=== PATIENT | male | born 1980 | race Caucasian/White ===

== ENCOUNTER 2025-03-15 12:53 | Emergency (ER) | payer SELFPAY ==
[2025-03-15 12:57] VITALS: BP 223/145
[2025-03-15] MEDS: DILAUDID 1 MG IV (13:10)
--- NOTE | 2025-03-15 13:24 | ED.GENMED ---
History of Present Illness
<River Garcia MD - Last Filed: 03/15/25 13:31>
General
Chief Complaint: Skin Surface Trauma
Time Seen by Provider: 03/15/25 13:08
<Brendon Weaver PA-C - Last Filed: 03/15/25 14:22>
General
Source: patient
Exam Limitations: none
History of Present Illness
History of Present Illness:
44-year-old [id number] male presents complaining of laceration/amputation of the right index finger. He was removing a pin for a back kit and the bucket fell pinching his finger. He noticed that his tip of his finger was cut off. He
presents finger in a bag.
Phy Exam
<Brendon Weaver PA-C - Last Filed: 03/15/25 14:22>
Physical Exam
Physical Exam:
General: Well-appearing male no acute respiratory distress
HEENT: Normal cephalic atraumatic
Musculoskeletal exam: There is a full amputation of the right index finger at the level of the DIP joint radially and the laceration extends obliquely to the ulnar direction. He has ability to flex slightly at the DIP joint.
Neurologic exam: Good sensation to the tip of the finger
Vascular: Right index finger with brisk Apley refill
Course
<River Garcia MD - Last Filed: 03/15/25 13:31>
Orders/Labs/Results
Orders:
Orders
03/15/25 13:09
HYDROmorphone [Dilaudid] 1 mg .ROUTE .STK-MED ONE
03/15/25 13:10
HYDROmorphone [Dilaudid] 1 mg IV NOW STA
03/15/25 13:21
CR Finger(s)/thumb Min 2 Vw Rt Urgent
Comment:
Reason For Exam: amputation
03/15/25 13:24
CeFAZolin 1 GRAM [Ancef] 1 gram in 5 ml IV NOW
Tetanus/Diphth/Acelpertussis [Adacel] 0.5 ml IM .ONCE ONE
Vital Signs
Initial and Last Documented VS:
Initial Vital Signs
Temp Pulse Resp BP Pulse Ox
98.3 F 100 20 223/145 100
03/15/25 12:57 03/15/25 12:57 03/15/25 12:57 03/15/25 12:57 03/15/25 12:57
Last Documented Vital Signs
Temp Pulse Resp BP Pulse Ox
98.3 F 100 20 223/145 100
03/15/25 12:57 03/15/25 12:57 03/15/25 12:57 03/15/25 12:57 03/15/25 13:25
<Brendon Weaver PA-C - Last Filed: 03/15/25 14:22>
Orders/Labs/Results
Orders:
Orders
03/15/25 13:09
HYDROmorphone [Dilaudid] 1 mg .ROUTE .STK-MED ONE
03/15/25 13:10
HYDROmorphone [Dilaudid] 1 mg IV NOW STA
03/15/25 13:21
CR Finger(s)/thumb Min 2 Vw Rt Urgent
Comment:
Reason For Exam: amputation
03/15/25 13:24
CeFAZolin 1 GRAM [Ancef] 1 gram in 5 ml IV NOW
Tetanus/Diphth/Acelpertussis [Adacel] 0.5 ml IM .ONCE ONE
Vital Signs
Initial and Last Documented VS:
Initial Vital Signs
Temp Pulse Resp BP Pulse Ox
98.3 F 100 20 223/145 100
03/15/25 12:57 03/15/25 12:57 03/15/25 12:57 03/15/25 12:57 03/15/25 12:57
Last Documented Vital Signs
Temp Pulse Resp BP Pulse Ox
98.3 F 100 20 223/145 100
03/15/25 12:57 03/15/25 12:57 03/15/25 12:57 03/15/25 12:57 03/15/25 13:25
<Brendon Weaver PA-C - Last Filed: 03/15/25 14:22>
MDM/Problems Addressed
Differential Diagnosis Includes:
Complete amputation tip of right index finger. Digital block was provided for pain relief lidocaine and Marcaine. X-rays pending. I sent a picture of the patient's finger to the hand specialist for their evaluation and explained that he has the
tip of his finger with them. They advised bandages and follow-up in the office. They feel he will do better with a revision amputation as an outpatient. Tetanus vaccine updated. Ancef ordered
<River Garcia MD - Last Filed: 03/15/25 13:31>
*Pulse Oximetry
SaO2: 100
Oxygen Mode of Delivery: Room air
<Brendon Weaver PA-C - Last Filed: 03/15/25 14:22>
*Pulse Oximetry
Patient hypoxic: no
*Critical Care Note
Total Time (30-74mins, 75-104mins- exclusive of procedures): Not Applicable
<Brendon Weaver PA-C - Last Filed: 03/15/25 14:22>
Update Note
Update Note:
Discussed findings with the hand specialist and they recommended dressing the finger as it is. They want to see him in their office today upon discharge to discuss revision amputation. X-rays reviewed and demonstrate a full amputation at the level
of the distal phalanx just distal to the DIP joint.
ED Attending Note
<River Garcia MD - Last Filed: 03/15/25 13:31>
ED Attending Note
Patient seen and examined by attending physician: Yes
I performed the substantive portion of visit, reviewed & personally made and approve the management plan that is documented in note by myself or KATLYN.: Yes
ED Attending Note:
I have seen and evaluated the patient with a [id number] encounter. I have spoken to the [KATLYN] and involved in the medical history, the physical exam, medical decision making.
Evaluation and management service: agree unless noted differently below.
Results interpretation: agree unless noted differently below.
44-year-old man presenting to the emergency department with a partial fingertip amputation. Patient states that his right index finger was crushed by a backhoe bucket. Patient has significant pain. Denies any trauma elsewhere. He is not on a
blood thinner. On my evaluation patient is resting comfortably. His right index finger does has a diagonal partial amputation. No obvious bony exposure. He is able to flex at the distal IP joint. Will complete digital block obtain x-rays and
will discuss with hand surgery. Amputated finger is wrapped in moist gauze on ice.
-
Portions of this chart may have been created with voice recognition software.� Occasional wrong word or��sound alike� substitutions may have occurred due to the inherent limitations of voice recognition software.
Discharge Plan
Departure
Patient Disposition: Home (Routine Discharge)
Date of Disposition: 03/15/25
Time of Disposition: 14:21
Patient with high blood pressure during this ER visit?: No
Discharge Problem:
Amputation finger
Instructions: Wound Care (DC)
Referrals:
Hadley Xiao MD [Active, Orthopedics]
Activity Restrictions/Additional Instructions:
Please go directly to the hand specialist office and see Dr. Xiao to discuss further and definitive treatment for your finger
Interventions
Interventions:
*Risk Screen - Suicide Last Done: 03/15/25 12:57
*General Assessment Last Done: 03/15/25 13:33
*Neglect/Abuse Screening Last Done: 03/15/25 13:33
*ED COVID-19 Vaccine History Last Done: 03/15/25 12:57
*ED Influenza Vaccine History Last Done: 03/15/25 12:57
ED-Skin Assessment Last Done: 03/15/25 13:56
Discharge Date and Time
Print Language: GHANAIAN
[2025-03-15 13:32] VITALS: BMI 21.5
[2025-03-15] MEDS: DILAUDID 0.5 MG IV (15:06)
[2025-03-15] MEDS: ANCEF 5 IV (15:08)
[2025-03-15 15:10] VITALS: BP 220/95
--- NOTE | 2025-03-15 15:55 | EDRN ---
Hypertension: Patient's BP 220/95, HR 95 before discharge. Patient reports he is prescribed lisinopril but does not take it. Patient reports his SBP is typically over 200 mmHg and has been for over the past 20 years. Patient reports he does not any
medications for his BP. RN educated the patient of the importance and risk like stroke and heart attack. Patient verbalizes his understanding and continues to refuse medications.
== END 2025-03-15 15:40 | disposition home or self-care (01) ==
LOC: EMR 12:53
PROVIDERS: EMERGENCY PHYSICIAN Student in an Organized Health Care Education/Training Program
DX: S68.620A Partial traumatic transphalangeal amputation of right index finger, initial encounter (principal); W20.8XXA Other cause of strike by thrown, projected or falling object, initial encounter
CPT/HCPCS: 99284; 96374; 96375; 96376; 73140; 90715